=== PATIENT | male | born 1985 | race Hispanic/Latino ===

== ENCOUNTER 2023-07-14 08:12 | Emergency (ER) | payer SELFPAY ==
[2023-07-14 09:22] LABS: SARS-CoV-2 NAA Rapid Test Not Detected (NotDetected)
== END 2023-07-14 10:00 | disposition home or self-care (01) ==
LOC: CSHERS 08:12
DX: J10.1 Influenza due to other identified influenza virus with other respiratory manifestations (principal); E11.9 Type 2 diabetes mellitus without complications; Z20.822 Contact with and (suspected) exposure to COVID-19; Z87.891 Personal history of nicotine dependence
CPT/HCPCS: 36416; 71046; 87081; 87430

== ENCOUNTER 2024-08-29 20:03 | Inpatient (IN) | payer SELFPAY ==
[~2024-08-29 20:03] MED LIST: Iopamidol 300 61% 100 ML VIAL FS ONE
[2024-08-29 21:08] LABS: #Basophils 0.08 10x3/uL (0.0-0.2); #Eosinophils 0.16 10x3/uL (0.0-0.5); #Monocytes 1.45 10x3/uL (0.0-1.1); #Neutrophils 16.87 10x3/uL (1.5-8.4); %Basophils 0.4 % (0.0-2.0); %Eosinophils 0.8 % (0.0-6.0); %Lymphocytes 1.8 % (18.0-47.0); %Monocytes 7.6 % (0.0-10.0); Hematocrit 44.2 % (38.8-50.0); Hemoglobin 15.8 g/dL (13.5-17.5); Mean Corpuscular HGB CONC 35.7 g/dL (32.0-36.0); Mean Corpuscular Hemoglobin 32.2 pg (27.0-33.0); Mean Corpuscular Volume 90.2 fL (81.2-95.1); Mean Platelet Volume 10.2 fL (7.4-10.4); Platelet Count 312 10x3/uL (150-450); RBC Distribution Width 11.9 % (11.5-14.5); White Blood Cell (WBC) Count 18.99 10x3/uL (3.5-10.5)
[2024-08-29] MEDS ORDERED: Ondansetron PF 4 MG/2 ML Vial ONE (21:20)
[2024-08-29] MEDS ORDERED: Famotidine/PF 20 mg/2ml Vial ONE (21:21)
[2024-08-29 21:30] LABS: ALT (SGPT) 27 U/L (8-55); AST (SGOT) 22 U/L (5-34); Albumin 3.8 g/dL (3.5-5.0); Alkaline Phosphatase 63 U/L (40-110); Anion Gap 20 mmol/L (10-20); BUN (Urea Nitrogen) 17 mg/dL (8.9-20.6); Bilirubin, Total 0.6 mg/dL (0.2-1.2); Calc. Creatinine Clearance 0 mL/min (70-130); Calcium 9.4 mg/dL (7.8-10.44); Carbon Dioxide 21 mmol/L (22-29); Chloride 101 mmol/L (98-107); Estimated GFR 106; Globulin 3.9 g/dL (2.4-3.5); Glucose 273 mg/dL (70-105); Lipase 37 U/L (8-78); Magnesium 1.8 mg/dL (1.6-2.6); Potassium 4.1 mmol/L (3.5-5.1); Protein, Total 7.7 g/dL (6.0-8.3); Sodium 138 mmol/L (136-145)
[2024-08-29] MEDS ORDERED: Ketorolac Tromethamine 30 MG (1 mL) VIAL ONE (21:46)
[2024-08-29 21:53] LABS: Bilirubin Neg (Negative); Blood, Urine 10 (Negative); Clarity Clear (Clear); Glucose, Urine (Dipstick) >=1000 mg/dL (Negative); Ketone, Urine 150 mg/dL (Negative); Leukocyte Negative (Negative); Nitrite Negative (Negative); Protein, Urine (Dipstick) 100 mg/dl (Neg-Trace); Urobilinogen Normal mg/dL (Less than 2)
[2024-08-29 22:32] LABS: Bacteria/HPF Rare-Few HPF (None Seen); CAUTI Indications for Culture Pelvic or flank pain; RBC/HPF 0-3 HPF (0-3); Squamous Epithelial 0-3 HPF (0-3); WBC/HPF 0-3 HPF (0-3)
[2024-08-29 22:33] LABS: Mucous/LPF Rare LPF (<2+)
[2024-08-29 22:34] LABS: Urine Culture Reflex No No
[2024-08-30] MEDS ORDERED: Ondansetron PF 4 MG/2 ML Vial IVP PRN (00:10)
[2024-08-30] MEDS ORDERED: Ondansetron ODT 4 MG TAB PO PRN (00:10)
[2024-08-30] MEDS ORDERED: Morphine 4 MG/ML VIAL ONE (00:31)
[2024-08-30] MEDS ORDERED: Heparin 25,000 units/D5W 500 ML ONE (00:31)
[2024-08-30 00:35] LABS: PTT 25.2 sec (22.0-33.0); Prothrombin Time 10.5 sec (9.5-12.1)
[2024-08-30] MEDS ORDERED: Insulin Lispro 100 UNIT/ML 10 ML VIAL SC PRN (00:49)
[2024-08-30] MEDS ORDERED: Dextrose 5% in Water 1,000 ML IV PRN (00:49)
[2024-08-30] MEDS ORDERED: Dextrose 50% Abboject 50 ML SYRINGE SLOW IVP PRN (00:49)
[2024-08-30] MEDS ORDERED: Glucagon 1 MG/ML KIT IM PRN (00:49)
[2024-08-30 02:06] LABS: PTT 26.5 sec (22.0-33.0); Prothrombin Time 10.6 sec (9.5-12.1)
[2024-08-30 02:13] VITALS: BMI 32.5
[2024-08-30] MEDS: Heparin 10,000 UNITS/ 10 ML VIAL SLOW IVP SCH (03:06)
[2024-08-30] MEDS: cefTRIAXone\\ROCEPHIN 1 GM in Sodium Chloride 0.9% 100 ML IVPB SCH (03:07)
[2024-08-30] MEDS: Acetaminophen 325 MG TAB PO PRN (03:16)
[2024-08-30] MEDS: Heparin 25,000 units/D5W 500 ML IV SCH (03:17)
[2024-08-30 04:03] LABS: #Basophils 0.04 10x3/uL (0.0-0.2); #Eosinophils 0.03 10x3/uL (0.0-0.5); #Monocytes 1.06 10x3/uL (0.0-1.1); #Neutrophils 13.56 10x3/uL (1.5-8.4); %Basophils 0.3 % (0.0-2.0); %Eosinophils 0.2 % (0.0-6.0); %Neutrophils 89.1 % (40.0-75.0); Hematocrit 41.5 % (38.8-50.0); Hemoglobin 13.9 g/dL (13.5-17.5); Mean Corpuscular HGB CONC 33.5 g/dL (32.0-36.0); Mean Corpuscular Hemoglobin 30.9 pg (27.0-33.0); Mean Corpuscular Volume 92.2 fL (81.2-95.1); Mean Platelet Volume 10.8 fL (7.4-10.4); Platelet Count 294 10x3/uL (150-450); White Blood Cell (WBC) Count 15.21 10x3/uL (3.5-10.5)
[2024-08-30 04:24] LABS: ALT (SGPT) 24 U/L (8-55); AST (SGOT) 21 U/L (5-34); Albumin 3.1 g/dL (3.5-5.0); Alkaline Phosphatase 53 U/L (40-110); Anion Gap 18 mmol/L (10-20); BUN (Urea Nitrogen) 16 mg/dL (8.9-20.6); Bilirubin, Total 0.6 mg/dL (0.2-1.2); Calc. Creatinine Clearance 147 mL/min (70-130); Calcium 8.3 mg/dL (7.8-10.44); Carbon Dioxide 16 mmol/L (22-29); Chloride 107 mmol/L (98-107); Estimated GFR 113; Globulin 3.1 g/dL (2.4-3.5); Glucose 236 mg/dL (70-105); Protein, Total 6.2 g/dL (6.0-8.3); Sodium 137 mmol/L (136-145)
[2024-08-30] MEDS: metroNIDAZOLE 500 MG in Premix 1 BAG IVPB SCH (06:11)
[2024-08-30] MEDS: Insulin Lispro 100 UNIT/ML 10 ML VIAL SC PRN (06:19)
[2024-08-30 07:53] LABS: PTT 64.6 sec (22.0-33.0); Prothrombin Time 10.4 sec (9.5-12.1)
[2024-08-30] MEDS: Pantoprazole 40 MG DR.TAB PO SCH (09:28)
[2024-08-30] MEDS: Dapagliflozin Propanediol 10 MG TAB PO SCH (09:29)
[2024-08-30] MEDS: Atorvastatin Calcium 20 MG TAB PO SCH (09:31)
[2024-08-30] MEDS: HYDROcodone/Acetaminophen 5/325 mg Tablet PO PRN (12:38)
[2024-08-30 15:58] LABS: PTT 44.8 sec (22.0-33.0); Prothrombin Time 10.5 sec (9.5-12.1)
[2024-08-30 20:16] LABS: PTT 44.4 sec (22.0-33.0); Prothrombin Time 10.7 sec (9.5-12.1)
[2024-08-31 04:56] LABS: #Basophils 0.05 10x3/uL (0.0-0.2); #Eosinophils 0.39 10x3/uL (0.0-0.5); #Monocytes 1.08 10x3/uL (0.0-1.1); #Neutrophils 4.16 10x3/uL (1.5-8.4); %Basophils 0.7 % (0.0-2.0); %Eosinophils 5.1 % (0.0-6.0); %Lymphocytes 24.9 % (18.0-47.0); %Monocytes 14.2 % (0.0-10.0); %Neutrophils 54.8 % (40.0-75.0); Hemoglobin 13.3 g/dL (13.5-17.5); Mean Corpuscular Volume 91.3 fL (81.2-95.1); Platelet Count 246 10x3/uL (150-450); RBC Distribution Width 12.3 % (11.5-14.5); Red Blood Cell (RBC) Count 4.16 10x6/uL (4.32-5.72); White Blood Cell (WBC) Count 7.59 10x3/uL (3.5-10.5)
[2024-08-31 05:14] LABS: Anion Gap 16 mmol/L (10-20); BUN (Urea Nitrogen) 13 mg/dL (8.9-20.6); Calc. Creatinine Clearance 165 mL/min (70-130); Carbon Dioxide 20 mmol/L (22-29); Chloride 106 mmol/L (98-107); Estimated GFR 117; Glucose 145 mg/dL (70-105); Potassium 3.5 mmol/L (3.5-5.1); Sodium 138 mmol/L (136-145)
[2024-08-31] MEDS: traMADol HCl 50 MG TAB PO PRN (09:16)
[2024-08-31] MEDS: Apixaban 5 MG TAB PO SCH ×2 (11:00→21:26)
[2024-08-31] MEDS ORDERED: Iopamidol 300 61% 100 ML VIAL FS ONE (13:05)
[2024-08-31 13:38] LABS: Cardiolipin IgG Ab 1.1 GPL-U/mL (<10 Negative); Cardiolipin IgM Ab Less than 0.9 MPL-U/mL (<10 Negative); EliA APS New Method **** NEW METHOD ****; EliA RAS New Method **** NEW METHOD ****; Rheumatoid Factor IgM Antibody 0.9 IU/mL (<3.5 Negative); beta-2-Glycoprotein I IgG Ab 1.2 U/mL (<7 Negative); beta-2-Glycoprotein I IgM Abs Less than 2.4 U/mL (<7 Negative)
[2024-08-31] MEDS: Senokot S 8.6-50 MG TAB PO SCH ×2 (14:59→21:26)
[2024-09-01 04:19] LABS: #Basophils 0.05 10x3/uL (0.0-0.2); #Eosinophils 0.32 10x3/uL (0.0-0.5); #Monocytes 1.14 10x3/uL (0.0-1.1); #Neutrophils 3.72 10x3/uL (1.5-8.4); %Basophils 0.7 % (0.0-2.0); %Eosinophils 4.6 % (0.0-6.0); %Lymphocytes 24.4 % (18.0-47.0); %Monocytes 16.4 % (0.0-10.0); %Neutrophils 53.5 % (40.0-75.0); Hematocrit 40.1 % (38.8-50.0); Hemoglobin 13.5 g/dL (13.5-17.5); Mean Corpuscular HGB CONC 33.7 g/dL (32.0-36.0); Mean Corpuscular Hemoglobin 30.6 pg (27.0-33.0); Mean Corpuscular Volume 90.9 fL (81.2-95.1); Mean Platelet Volume 10.1 fL (7.4-10.4); Platelet Count 281 10x3/uL (150-450); RBC Distribution Width 12.1 % (11.5-14.5); Red Blood Cell (RBC) Count 4.41 10x6/uL (4.32-5.72); White Blood Cell (WBC) Count 6.96 10x3/uL (3.5-10.5)
[2024-09-01 04:31] LABS: ALT (SGPT) 37 U/L (8-55); AST (SGOT) 35 U/L (5-34); Albumin 2.9 g/dL (3.5-5.0); Alkaline Phosphatase 45 U/L (40-110); Anion Gap 16 mmol/L (10-20); BUN (Urea Nitrogen) 11 mg/dL (8.9-20.6); Bilirubin, Total 0.3 mg/dL (0.2-1.2); Calc. Creatinine Clearance 162 mL/min (70-130); Calcium 8.4 mg/dL (7.8-10.44); Carbon Dioxide 18 mmol/L (22-29); Chloride 106 mmol/L (98-107); Estimated GFR 116; Globulin 3.3 g/dL (2.4-3.5); Glucose 107 mg/dL (70-105); Potassium 3.6 mmol/L (3.5-5.1); Protein, Total 6.2 g/dL (6.0-8.3); Sodium 136 mmol/L (136-145)
[2024-09-01] MEDS ORDERED: Iopamidol 370 76% 100 ML VIAL ONE (13:27)
[2024-09-01 15:04] VITALS: BP 159/79; TEMP 98
[2024-09-01] MEDS ORDERED: Cephalexin 500 MG CAP PO SCH (21:00)
[2024-09-07] MEDS ORDERED: Apixaban 5 MG TAB PO SCH (09:00)
== END 2024-09-01 16:38 | disposition home or self-care (01) | DRG 872 ==
LOC: CSHERS 20:03 → OBSVTOIN 08-30 00:12 → CSHTELE 08-30 00:12
PROVIDERS: ADMIT Internal Medicine; ATTEND Family Medicine
DX: A41.9 Sepsis, unspecified organism (principal); N39.0 Urinary tract infection, site not specified; D73.5 Infarction of spleen; E78.5 Hyperlipidemia, unspecified; K21.9 Gastro-esophageal reflux disease without esophagitis; E11.9 Type 2 diabetes mellitus without complications; Z90.49 Acquired absence of other specified parts of digestive tract; Z87.891 Personal history of nicotine dependence; Z79.84 Long term (current) use of oral hypoglycemic drugs; Z79.01 Long term (current) use of anticoagulants; Z79.899 Other long term (current) drug therapy
CPT/HCPCS: 36415; 36416; 71045; 71275; 74177; 80048; 80053; 81001; 81241; 83520; 83605; 83690; 83735; 84145; 85025; 85303; 85305; 85598; 85610; 85613; 85730; 86146; 86147; 87040; 87428; 93306; 96365; 96374; 96375; J0696; J1644; J1815; J1885; J2270; J2405; J3490; Q9967

== ENCOUNTER 2025-03-20 01:46 | Emergency (ER) | payer OTHER, SELFPAY | END 2025-03-20 03:16 | disposition home or self-care (01) | LOC: CSHERS 01:46 | DX: S20.211A Contusion of right front wall of thorax, initial encounter (principal); S80.211A Abrasion, right knee, initial encounter; S50.319A Abrasion of unspecified elbow, initial encounter; E11.9 Type 2 diabetes mellitus without complications; V00.141A Fall from scooter (nonmotorized), initial encounter; Z87.891 Personal history of nicotine dependence; Z79.84 Long term (current) use of oral hypoglycemic drugs; Z79.01 Long term (current) use of anticoagulants; Z79.899 Other long term (current) drug therapy; Z86.718 Personal history of other venous thrombosis and embolism | CPT/HCPCS: 71046 ==